=== PATIENT | female | born 1950 | race Caucasian/White ===

== ENCOUNTER → 2017-01-07 | Outpatient (CLI) | payer OTHER ==
[~2017-01-07] MED LIST: ADVIL200 M1 PO; ADVIL200 MG PO; BENADRYL25 MG PO; BIOTIN1000 MCG PO; DAILY VALUE1 EACH PO; ENDOCET 5-3251 EACH PO; ESSENTIAL DAIL1 EACH PO; FLEXERIL10 MG PO; IRON325 M1 PO; IRON325 MG PO; MULTIPLE VITAM1 EAC4 PO; NAPROSYN500 MG PO; OXYCODONE HCL5 MG PO; OXYCONTIN10 MG PO; SENNA PLUS TAB1 EACH PO; XARELTO10 MG PO
[2017-01-07 09:38] LABS: EOSINOPHIL (%) 0.9 % (0-5); HEMATOCRIT 33.6 % (36.0-46.0); IMMATURE GRANULOCYTE (%) 0.4 % (0.0-0.7); INSTRUMENT ABS NEUTROPHIL CT 2.4 K/uL; LYMPHOCYTE COUNT 1.6 K/uL (1.0-2.8); MCH 25.9 PG (29.0-34.0); MCV 83.6 FL (83-99); MONOCYTE (%) 10.7 % (3-12); MONOCYTE COUNT 0.5 K/uL (0-0.8); NEUTROPHIL COUNT 2.4 K/uL (1.8-6.4); PLATELET COUNT 271 K/uL (156-360); RBC DIS.WIDTH-CV 15.1 % (11.8-14.6); RBC DIS.WIDTH-SD 46.4 % (39-53); RED BLOOD COUNT 4.02 M/uL (3.80-5.20); WHITE BLOOD COUNT 4.6 K/uL (4.1-10.2)
[2017-01-07 10:18] LABS: ABS NEUTROPHIL COUNT 2.7; BASOPHILS 0.9 %; EOSINOPHIL ABS CT 0.1; EOSINOPHILS 1.7 % (0-5.0); PLAT.SUFFICIENCY ADEQUATE; SEG.NEUTROPHILS 58.8 % (46.0-76.0); SMUDGE CELLS 8.8
[2017-01-10 17:18] LABS: NUMBER OF MARKERS 22; SPECIMEN VIABILITY 96
[2017-01-19 14:52] LABS: FISH p53 DELETION NOT DONE
[2017-01-20 14:22] LABS: MYD88 L265P MUTATION Detected
== END | disposition home or self-care (01) ==
LOC: JMC 07:48
PROVIDERS: Internal Medicine Hematology & Oncology
PROC: 07DR3ZX Extraction of Iliac Bone Marrow, Percutaneous Approach, Diagnostic (ICD-10-PCS; principal; 2017-01-07)
DX: C83.00 Small cell B-cell lymphoma, unspecified site (principal); D75.89 Other specified diseases of blood and blood-forming organs; F41.9 Anxiety disorder, unspecified
CPT/HCPCS: 38221; 85007; 85025; 96372 XU; J2060